=== PATIENT | male | born 1935 | race Caucasian/White ===

== ENCOUNTER 2018-04-30 11:04 | Inpatient (IN) | payer MEDICARE, OTHER ==
[2018-04-30] MEDS ORDERED: Albuterol-Ipratrop 3 mg / 0.5 (3 ml) UD IH STA (11:32)
--- NOTE | 2018-04-30 11:54 | ED PDOC ---
HPI: SOB/CHF/COPD Time Seen by Provider: 04/30/18 11:26 Chief Complaint (Nursing): Shortness Of Breath Chief Complaint (Provider): SOB, cough, congestion History Per: Patient History/Exam Limitations: no limitations Onset/Duration Of Symptoms: Days Current Symptoms Are (Timing): Still Present Associated Symptoms: Productive Cough. denies: Fever, Chills, Chest Pain Additional Complaint(s): Parviz Demarco is an 82 year old male, with a past medical history of throat CA with laryngectomy s/p tracheostomy and BPH, who presents to the emergency department for complaining of difficulty breathing, congestion and cough onset for days. Patient reports no improvement with suctioning and nebulizer treatments, patient has cannula in place. He denies any fever, chills or chest pain. No further medical complaints. PMD: None provided. Past Medical History Reviewed: Historical Data, Nursing Documentation, Vital Signs Vital Signs: Last Vital Signs Temp 98.4 F 05/02/18 08:00 Pulse 67 05/02/18 08:21 Resp 11 L 05/02/18 08:00 BP 149/85 05/02/18 08:21 Pulse Ox 99 05/02/18 08:00 - Medical History PMH: Benign Prostatic Hyperplasia Denies: Chronic Kidney Disease Other PMH: throat CA - Surgical History Other surgeries: laryngectomy s/p tracheostomy - Family History Family History: States: No Known Family Hx - Home Medications Home Medications: Ambulatory Orders Medication Instructions Recorded Albuterol/Ipratropium [Duoneb 3 3 ml IH Q6H PRN 03/08/15 mg/0.5 mg (3 ml) UD] Finasteride [Proscar] 5 mg PEG DAILY 03/08/15 Budesonide [Pulmicort Respules] 2 ml IH Q12 04/30/18 Sodium Chloride 0.9% [Sodium 3 ml IH Q6 PRN 04/30/18 Chloride 0.9% Inh Soln] - Allergies Allergies/Adverse Reactions: Allergies Allergy/AdvReac Type Severity Reaction Status Date / Time No Known Allergies Allergy Verified 04/30/18 11:10 Review of Systems ROS Statement: Except As Marked, All Systems Reviewed And Found Negative Constitutional: Negative for: Fever, Chills ENT: Positive for: Nose Congestion Cardiovascular: Negative for: Chest Pain Respiratory: Positive for: Cough, Shortness of Breath Physical Exam - Reviewed Nursing Documentation Reviewed: Yes Vital Signs Reviewed: Yes - Physical Exam Appears: Positive for: Non-toxic Head Exam: Positive for: ATRAUMATIC, NORMAL INSPECTION, NORMOCEPHALIC Skin: Positive for: Normal Color, Warm, Dry Eye Exam: Positive for: Normal appearance, EOMI, PERRL Neck: Positive for: Painless ROM, Supple Cardiovascular/Chest: Positive for: Regular Rate, Rhythm. Negative for: Murmur Respiratory: Positive for: Decreased Breath Sounds (at bases bilaterally), Rhonchi. Negative for: Wheezing, Respiratory Distress Gastrointestinal/Abdominal: Positive for: Normal Exam, Soft. Negative for: Tenderness Back: Positive for: Normal Inspection. Negative for: L CVA Tenderness, R CVA Tenderness, Vertebral Tenderness Extremity: Positive for: Normal ROM (full ROM to upper and lower extremities). Negative for: Deformity, Swelling Neurologic/Psych: Positive for: Alert, Oriented. Negative for: Motor/Sensory Deficits - Laboratory Results Result Diagrams: 05/02/18 04:39 05/02/18 04:39 - ECG O2 Sat by Pulse Oximetry: 95 (RA) Pulse Ox Interpretation: Normal Medical Decision Making Medical Decision Making: Time: 11:26 Initial Plan: --CMP --CBC w/ differential --Duoneb 3 ml INH --Peak flow pre/post Tx --Reevaluation ----- Scribe Attestation: Documented by Spenser Diallo, acting as a scribe for Abdulaziz Childress MD. Provider Scribe Attestation: All medical record entries made by the Scribe were at my direction and personally dictated by me. I have reviewed the chart and agree that the record accurately reflects my personal performance of the history, physical exam, medical decision making, and the department course for this patient. I have also personally directed, reviewed, and agree with the discharge instructions and disposition. Disposition - Clinical Impression Clinical Impression: Tracheostomy complication - Patient ED Disposition Is Patient to be Admitted: Transfer of Care - Disposition Disposition: Transfer of Care Disposition Time: 15:00 Condition: FAIR Patient Signed Over To: Ralph Marroquin
[2018-04-30] MEDS ORDERED: Albuterol-Ipratrop 3 mg / 0.5 (3 ml) UD ONE (11:55)
[2018-04-30 12:34] LABS: ALB/GLOB RATIO 0.9 (1.0-2.1); ALBUMIN 3.4 g/dL (3.5-5.0); ALT/SGPT 27 U/L (21-72); AST/SGOT 31 U/L (17-59); BLOOD UREA NITROGEN 34 mg/dl (9-20); CALCIUM 8.9 mg/dL (8.4-10.2); GFR AFRICAN-AMERICAN > 60; GFR NON-AFRICAN AMERICAN > 60
[2018-04-30 12:39] LABS: BASO % 0.4 % (0.0-2.0); EOS % 0.8 % (0.0-4.0); LYMPH # 0.5 K/uL (1.0-4.3); LYMPH % 10.5 % (20.0-40.0); MEAN CELL VOLUME 75.2 fl (80.0-94.0); MEAN CORPUSCULAR HEMOGLOBIN 24.1 pg (27.0-31.0); MEAN CORPUSCULAR HGB CONC 32.1 g/dL (33.0-37.0); MEAN PLATELET VOLUME 9.5 fl (7.2-11.7); MONO # 0.3 K/uL (0.0-0.8); MONO % 6.8 % (0.0-10.0); NEUT # 3.7 K/uL (1.8-7.0); NEUT % 81.5 % (50.0-75.0); NRBC % 0.2 % (0.0-0.0); RBC 4.58 Mil/uL (4.40-5.90); RED CELL DISTRIBUTION WIDTH 14.6 % (11.5-14.5); WHITE BLOOD COUNT 4.6 K/uL (4.8-10.8)
--- NOTE | 2018-04-30 13:23 | RAD ---
HISTORY: cough COMPARISON: No prior. TECHNIQUE: Chest PA and lateral FINDINGS: LUNGS: No active pulmonary disease. PLEURA: No significant pleural effusion identified. No pneumothorax apparent. CARDIOVASCULAR: Normal heart size. A tracheostomy tube is noted. OSSEOUS STRUCTURES: No significant abnormalities. VISUALIZED UPPER ABDOMEN: Normal. OTHER FINDINGS: None. IMPRESSION: No infiltrate. Tracheostomy tube noted
[2018-04-30] MEDS ORDERED: Sodium Chloride 0.9% 1,000 ML IV STA (14:01)
--- NOTE | 2018-04-30 15:24 | ED PDOC ---
- Laboratory Results Result Diagrams: 04/30/18 12:19 04/30/18 12:19 - ECG O2 Sat by Pulse Oximetry: 95 (RA) Pulse Ox Interpretation: Normal Medical Decision Making Medical Decision Making: Time: 1500 --Patient is endorsed to provider from Dr. Childress, awaiting to discuss case with Dr. Tran about patient's clogged trach tube. --Patient is currently medical stable. Scribe Attestation: Documented by Ximena Gordon, acting as a scribe for Ralph Marroquin MD. Provider Scribe Attestation: All medical record entries made by the Scribe were at my direction and personally dictated by me. I have reviewed the chart and agree that the record accurately reflects my personal performance of the history, physical exam, medical decision making, and the department course for this patient. I have also personally directed, reviewed, and agree with the discharge instructions and disposition. 1704: Dr. Tran knows pt. well. Saw pt. in the ER. Will admit. He will discuss with Dr. Cardenas. Dr. Harvey spoken to by Dr. Childress who states no acute tx at this time and will consult. Disposition Counseled Patient/Family Regarding: Studies Performed, Diagnosis - Clinical Impression Clinical Impression: Tracheostomy complication - POA Present On Arrival: None - Disposition Disposition: Hospitalized as Observation Patient Disposition Time: 17:06 Condition: FAIR
[2018-04-30] MEDS ORDERED: Albuterol-Ipratrop 3 mg / 0.5 (3 ml) UD INH STA ×2 (19:11→19:34)
[2018-04-30 19:33] LABS: ABG ALLEN TEST YES; ARTERIAL BLOOD GAS HCO3 30.8 mmol/L (21-28); ARTERIAL BLOOD GAS PCO2 44 mm/Hg (35-45); ARTERIAL BLOOD GAS PH 7.47 (7.35-7.45); ARTERIAL BLOOD GAS PO2 133 mm/Hg (80-100); ARTERIAL BLOOD GAS TCO2 33.4 mmol/L (22-28)
[2018-04-30] MEDS ORDERED: methylPREDNISolone 125 MG in Sodium Chloride 0.9% 50 ML IVPB STA (19:44)
[2018-04-30] MEDS ORDERED: Labetalol 5 mg/ml Inj 20ML IVP ONE (19:45)
[2018-04-30] MEDS ORDERED: Albuterol 0.083% Inhal Sol (2.5 mg/3 mL) UD INH PRN (20:00)
--- NOTE | 2018-04-30 20:31 | CP.PCM.CON ---
History of Present Illness - History of Present Illness History of Present Illness: CC/Reason for transfer to ICU: worsening SOB, elevated BP HPI: This is an 82 y/o male with MHx sig for throat ca with laryngectomy s/p trach, and BPH. He was admitted from ER earlier today to tele with c/o difficulty breathing, cough, and congestion x several days. This evening an RACK CARRIER was called because his SBP was > 200 and he was c/o worsening resp difficulty. He was t/f to ICU for closer observation. He has no other complaints other than his resp difficulty. MHx: BPH SHx: Throat surgery/trach Allergies: NKDA Fam/Social Hx: no relevant findings Past Patient History - Past Medical History & Family History Past Medical History?: Yes - Past Social History Smoking Status: Never Smoked - CARDIAC Hx Cardiac Disorders: No - PULMONARY Hx Respiratory Disorders: Yes Other/Comment: tracheostomy secondary to throat ca - NEUROLOGICAL Hx Neurological Disorder: No - HEENT Hx HEENT Problems: Yes (throat cancer) - RENAL Hx Chronic Kidney Disease: No - ENDOCRINE/METABOLIC Hx Endocrine Disorders: No - HEMATOLOGICAL/ONCOLOGICAL Hx Blood Disorders: No - INTEGUMENTARY Hx Dermatological Problems: No - MUSCULOSKELETAL/RHEUMATOLOGICAL Hx Musculoskeletal Disorders: No Hx Falls: No - GASTROINTESTINAL Hx Gastrointestinal Disorders: Yes Other/Comment: gastrostomy tube - GENITOURINARY/GYNECOLOGICAL Hx Genitourinary Disorders: Yes (BPH) - PSYCHIATRIC Hx Psychophysiologic Disorder: No Hx Substance Use: No - SURGICAL HISTORY Hx Surgeries: Yes Other/Comment: open gastrostomy tube placement and Tracheostomy - ANESTHESIA Hx Anesthesia: Yes Meds Allergies/Adverse Reactions: Allergies Allergy/AdvReac Type Severity Reaction Status Date / Time No Known Allergies Allergy Verified 04/30/18 11:10 - Medications Medications: Current Medications Albuterol Sulfate (Albuterol 0.083% Inhal [place]acia (2.5 Mg/3 Ml) Ud) 2.5 mg INH RQ4 PRN PRN Reason: Shortness of Breath Albuterol/Ipratropium (Duoneb 3 Mg/0.5 Mg (3 Ml) Ud) 3 ml INH RQ6 RONA Furosemide (Lasix) 40 mg IV ONCE ONE Stop: 05/01/18 19:12 Last Admin: 04/30/18 19:18 Dose: 40 mg Physical Exam - Constitutional Appears: No Acute Distress, Chronically Ill - Head Exam Head Exam: ATRAUMATIC, NORMOCEPHALIC - Eye Exam Eye Exam: EOMI, PERRL - ENT Exam ENT Exam: Mucous Membranes Moist - Respiratory Exam Respiratory Exam: Rhonchi, Wheezes, Respiratory Distress - Cardiovascular Exam Cardiovascular Exam: REGULAR RHYTHM, +S1, +S2 - GI/Abdominal Exam GI & Abdominal Exam: Normal Bowel Sounds, Soft - Extremities Exam Extremities exam: Positive for: full ROM, normal inspection - Neurological Exam Neurological exam: Alert, CN II-XII Intact, Oriented x3 - Psychiatric Exam Psychiatric exam: Normal Affect, Normal Mood - Skin Skin Exam: Dry, Warm Results - Vital Signs Recent Vital Signs: Last Vital Signs Temp 98.4 F 04/30/18 20:08 Pulse 65 04/30/18 20:08 Resp 18 04/30/18 20:08 BP 154/75 H 04/30/18 20:08 Pulse Ox 99 04/30/18 20:08 - Labs Result Diagrams: 04/30/18 12:19 04/30/18 12:19 Labs: Laboratory Results - last 24 hr 04/30/18 04/30/18 04/30/18 12:19 12:19 19:25 WBC 4.6 L RBC 4.58 Hgb 11.0 L Hct 34.4 L MCV 75.2 L MCH 24.1 L MCHC 32.1 L RDW 14.6 H Plt Count 150 MPV 9.5 Neut % (Auto) 81.5 H Lymph % (Auto) 10.5 L [place] % (Auto) 6.8 Eos % (Auto) 0.8 Baso % (Auto) 0.4 Neut # (Auto) 3.7 Lymph # (Auto) 0.5 L [place] # (Auto) 0.3 Eos # (Auto) 0.0 Baso # (Auto) 0.0 pCO2 44 pO2 133 H HCO3 30.8 H ABG pH 7.47 H ABG Total CO2 33.4 H ABG O2 Saturation 100.0 H ABG Base Excess 7.4 H Danyel Test Yes ABG Potassium 3.6 A-a O2 Difference 12.0 Glucose 161 H Lactate 1.1 Vent Mode Tc FiO2 28.0 Sodium 142 141.0 Potassium 4.3 Chloride 106 106.0 Carbon Dioxide 26 Anion Gap 14 BUN 34 H Creatinine 0.9 Est GFR ( Amer) > 60 Est GFR (Non-Af Amer) > 60 Random Glucose 178 H Calcium 8.9 Total Bilirubin 0.3 AST 31 ALT 27 Alkaline Phosphatase 79 Total Protein 7.3 Albumin 3.4 L Globulin 3.9 Albumin/Globulin Ratio 0.9 L Arterial Blood Potassium 3.6 Assessment & Plan (1) Respiratory distress Assessment and Plan: 82 y/o male s/p laryngectomy with trach c/o worsening resp difficulty and with elevated BP. Abg and O2 sat have been stable. -Transfer to ICU for closer observation -Continue duonebs -Given 1 dose IV lasix -Given 1 dose IV labetolol -ENT consulted Status: Acute (2) Hypertensive urgency Status: Acute
[2018-04-30] MEDS ORDERED: SODIUM CHLORIDE 0.9% IH PRN (20:43)
[2018-04-30] MEDS ORDERED: [UNRECOGNIZED DRUG - OTHER] IH PRN (20:43)
--- NOTE | 2018-04-30 21:07 | PCM.RRT ---
[employer] Nurse Assessment - Situation [employer] Reason for Call: Hypertension, Respiratory Distress - Ventilator Settings FIO2 (% Oxygen): 28 - Trino Coma Scale Coma Scale Eye Opening: Spontaneous Coma Scale Motor: Obeys Commands Movement Coma Scale Verbal: Oriented Coma Scale Total: 15 I.Reason for ADVISORY [employer] - A) Acute Change in Patient: Subjective: [employer] was called by nurse for a 82 y/o male with PMHx significant for throat ca with laryngectomy s/p trach, and BPH. He was admitted from ER earlier today to tele with c/o difficulty breathing, cough, and congestion x several days. [employer] was called because his SBP was > 200 and he was c/o worsening resp difficulty.At the time of arrival patient was awake, alert, and oriented x 3 , c /o SOB. Denies chest pain, dizziness, blurry vision, abd pain or other complains. - Neurological Status (Select all that apply): Alert, Responsive, Oriented. absent: Confused - Respiratory Oxygen Delivery Method: Trach Collar @% - Constitutional Appears: Non-toxic, Other (respiratory distress) - Head Head Exam: ATRAUMATIC, NORMOCEPHALIC - Respiratory Exam Respiratory Exam: Wheezes (diffuse and bilateral), Respiratory Distress, NORMAL BREATHING PATTERN. absent: Chest Wall Tenderness, Rales, Rhonchi, Stridor - Cardiovascular Exam Cardiovascular Exam: REGULAR RHYTHM, +S1, +S2 - GI/Abdominal Exam GI & Abdominal Exam: Distended, Soft, Diminished Bowel Sounds. absent: Tenderness - Neurological Exam Neurological Exam: Alert, Awake, Oriented x3 - Extremities Exam Extremities Exam: Normal Inspection. absent: Calf Tenderness, Pedal Edema Plan - Assessment of Findings&Treatment Plan Plan:- -Tracheostomy succ -O2 via high humidity aerosol -Duoneb stat once -ABG stat -lasix 40 mg IV once Re-evaluation still c/o SOB, and still wheezing -give second Duoneb neb stat -ABG stat WNL -BP still elevated 190/108 mmhg -give labetalol 20 mg IV once re-evaluation improving, but still c/o SOB BP improving give third Duoneb neb pt asymptomatic for chest pain, dizziness, blurry vision Dr Tran was called by Dr. Alford, Hospitalist patient will be transferred to ICU unit for respiratory monitoring Call pulmunology on consult, Dr. Marcano Call ENT on consult, Dr. Cardenas start duoneb neg Q6 feliberto start Albuterol inh Q4 PRN case discussed with [employer] leader, Dr. Alford
[2018-05-01] MEDS: Albuterol-Ipratrop 3 mg / 0.5 (3 ml) UD INH SCH ×2 (02:52→08:08)
[2018-05-01 05:53] LABS: BLOOD UREA NITROGEN 30 mg/dl (9-20); CALCIUM 9.5 mg/dL (8.4-10.2); GFR AFRICAN-AMERICAN > 60; GFR NON-AFRICAN AMERICAN > 60
[2018-05-01 06:02] LABS: HEMOGLOBIN 12.2 g/dL (12.0-18.0); MEAN CELL VOLUME 75.7 fl (80.0-94.0); MEAN CORPUSCULAR HGB CONC 31.7 g/dL (33.0-37.0); RBC 5.07 Mil/uL (4.40-5.90); RED CELL DISTRIBUTION WIDTH 14.7 % (11.5-14.5); WHITE BLOOD COUNT 5.1 K/uL (4.8-10.8)
[2018-05-01 06:03] VITALS: BMI 20.8
--- NOTE | 2018-05-01 06:40 | CP.PCM.PCO ---
Physician Communication Note - Physician Communication Note Physician Communication Note: Improved, comfortable, sitting in bed, HOB elevated, reading a book.
[2018-05-01] MEDS: Budesonide 0.25 mg/2 ml Inhal Susp UD IH SCH ×3 (08:08→19:03)
[2018-05-01] MEDS ORDERED: Labetalol 5 mg/ml Inj 20ML IVP PRN (08:24)
[2018-05-01] MEDS ORDERED: Labetalol 5 mg/ml Inj 20ML IVP STA (10:42)
--- NOTE | 2018-05-01 12:45 | CP.PCM.CON ---
History of Present Illness - History of Present Illness History of Present Illness: Reason for consultation: sob, and clogged up tracheostomy tube. Requested by Dr. Tran. I have reviewed progress notes, imaging studies, and examined the pt. 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 He is a 82 yo male s/p total laryngectomy and end tracheostomy (15 years ago). He has done quite well since surgery and has been followed by his surgeon at a [facility]. 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 He presented yesterday with hx of progressive onset of sob and chest discomfort. In the ER, RRP was called, and was suctioned out vigorously from which his sx and O2 sat improved. Pt today does not show any signs of airway obstruction. Breathing comfortably. Denies sob. cxr: satisfactory. a/p: 1. Upper air obstruction due to inspissated secretions 2. Vigorous pulmonary toilet regimen. Past Patient History - Past Medical History & Family History Past Medical History?: Yes - Past Social History Smoking Status: Never Smoked - CARDIAC Hx Cardiac Disorders: No - PULMONARY Hx Respiratory Disorders: Yes Other/Comment: tracheostomy secondary to throat ca - NEUROLOGICAL Hx Neurological Disorder: No - HEENT Hx HEENT Problems: Yes (throat cancer) - RENAL Hx Chronic Kidney Disease: No - ENDOCRINE/METABOLIC Hx Endocrine Disorders: No - HEMATOLOGICAL/ONCOLOGICAL Hx Blood Disorders: No - INTEGUMENTARY Hx Dermatological Problems: No - MUSCULOSKELETAL/RHEUMATOLOGICAL Hx Musculoskeletal Disorders: No Hx Falls: No - GASTROINTESTINAL Hx Gastrointestinal Disorders: Yes Other/Comment: gastrostomy tube - GENITOURINARY/GYNECOLOGICAL Hx Genitourinary Disorders: Yes (BPH) - PSYCHIATRIC Hx Psychophysiologic Disorder: No Hx Substance Use: No - SURGICAL HISTORY Hx Surgeries: Yes Other/Comment: open gastrostomy tube placement and Tracheostomy - ANESTHESIA Hx Anesthesia: Yes Meds Allergies/Adverse Reactions: Allergies Allergy/AdvReac Type Severity Reaction Status Date / Time No Known Allergies Allergy Verified 04/30/18 11:10 - Medications Medications: Current Medications Albuterol Sulfate (Albuterol 0.083% Inhal [place]acia (2.5 Mg/3 Ml) Ud) 2.5 mg INH RQ4 PRN PRN Reason: Shortness of Breath Budesonide (Pulmicort Respules) 0.25 mg IH RBID [facility] Last Admin: 05/01/18 08:08 Dose: 0.25 mg Finasteride (Proscar) 5 mg PEG DAILY [facility] Last Admin: 05/01/18 08:58 Dose: 5 mg Furosemide (Lasix) 40 mg IV ONCE ONE Stop: 05/01/18 19:12 Last Admin: 04/30/18 19:18 Dose: 40 mg Hydrochlorothiazide (Hydrodiuril) 25 mg PO DAILY [facility] Last Admin: 05/01/18 08:58 Dose: 25 mg Ipratropium [place] (Atrovent) 0.5 mg IH RQ4 [facility] Results - Vital Signs Recent Vital Signs: Last Vital Signs Temp 98.7 F 05/01/18 12:00 Pulse 70 05/01/18 12:02 Resp 21 05/01/18 12:00 BP 195/112 H 05/01/18 12:02 Pulse Ox 100 05/01/18 12:00 - Labs Result Diagrams: 05/01/18 05:00 05/01/18 05:00 Labs: Laboratory Results - last 24 hr 04/30/18 04/30/18 04/30/18 12:19 12:19 19:25 WBC 4.6 L RBC 4.58 Hgb 11.0 L Hct 34.4 L MCV 75.2 L MCH 24.1 L MCHC 32.1 L RDW 14.6 H Plt Count 150 MPV 9.5 Neut % (Auto) 81.5 H Lymph % (Auto) 10.5 L [place] % (Auto) 6.8 Eos % (Auto) 0.8 Baso % (Auto) 0.4 Neut # (Auto) 3.7 Lymph # (Auto) 0.5 L [place] # (Auto) 0.3 Eos # (Auto) 0.0 Baso # (Auto) 0.0 pCO2 44 pO2 133 H HCO3 30.8 H ABG pH 7.47 H ABG Total CO2 33.4 H ABG O2 Saturation 100.0 H ABG Base Excess 7.4 H Danyel Test Yes ABG Potassium 3.6 A-a O2 Difference 12.0 Glucose 161 H Lactate 1.1 Vent Mode Tc FiO2 28.0 Sodium 142 141.0 Potassium 4.3 Chloride 106 106.0 Carbon Dioxide 26 Anion Gap 14 BUN 34 H Creatinine 0.9 Est GFR ( Amer) > 60 Est GFR (Non-Af Amer) > 60 Random Glucose 178 H Calcium 8.9 Total Bilirubin 0.3 AST 31 ALT 27 Alkaline Phosphatase 79 Total Protein 7.3 Albumin 3.4 L Globulin 3.9 Albumin/Globulin Ratio 0.9 L Arterial Blood Potassium 3.6 05/01/18 05/01/18 05:00 05:00 WBC 5.1 RBC 5.07 Hgb 12.2 Hct 38.4 MCV 75.7 L MCH 24.0 L MCHC 31.7 L RDW 14.7 H Plt Count 177 MPV Neut % (Auto) Lymph % (Auto) [place] % (Auto) Eos % (Auto) Baso % (Auto) Neut # (Auto) Lymph # (Auto) [place] # (Auto) Eos # (Auto) Baso # (Auto) pCO2 pO2 HCO3 ABG pH ABG Total CO2 ABG O2 Saturation ABG Base Excess Danyel Test ABG Potassium A-a O2 Difference Glucose Lactate Vent Mode FiO2 Sodium 143 Potassium 4.3 Chloride 100 Carbon Dioxide 31 H Anion Gap 16 BUN 30 H Creatinine 0.8 Est GFR ( Amer) > 60 Est GFR (Non-Af Amer) > 60 Random Glucose 159 H Calcium 9.5 Total Bilirubin AST ALT Alkaline Phosphatase Total Protein Albumin Globulin Albumin/Globulin Ratio Arterial Blood Potassium
--- NOTE | 2018-05-01 13:21 | CP.PCM.CON ---
History of Present Illness - History of Present Illness History of Present Illness: 82 YR OLD MALE WHO IS KNOWN TO ME IN THE PAST[2014].HE IS REFERRED BY DR KOCH BECAUSE OF RESPIRATORY DIFFICULTY DUE TO MUCUS PLUGGING OF HIS PERMANENT TRACHEOSTOMY SITE.HE HAS BEEN WELL SINCE TRACH REVISION IN 2013. HE APPEARS COMFORTABLE AT PRESENT WITH GOOD O2 SATURATION. Past Patient History - Past Medical History & Family History Past Medical History?: Yes - Past Social History Smoking Status: Never Smoked - CARDIAC Hx Cardiac Disorders: No - PULMONARY Hx Respiratory Disorders: Yes Other/Comment: tracheostomy secondary to throat ca - NEUROLOGICAL Hx Neurological Disorder: No - HEENT Hx HEENT Problems: Yes (throat cancer) - RENAL Hx Chronic Kidney Disease: No - ENDOCRINE/METABOLIC Hx Endocrine Disorders: No - HEMATOLOGICAL/ONCOLOGICAL Hx Blood Disorders: No - INTEGUMENTARY Hx Dermatological Problems: No - MUSCULOSKELETAL/RHEUMATOLOGICAL Hx Musculoskeletal Disorders: No Hx Falls: No - GASTROINTESTINAL Hx Gastrointestinal Disorders: Yes Other/Comment: gastrostomy tube - GENITOURINARY/GYNECOLOGICAL Hx Genitourinary Disorders: Yes (BPH) - PSYCHIATRIC Hx Psychophysiologic Disorder: No Hx Substance Use: No - SURGICAL HISTORY Hx Surgeries: Yes Other/Comment: open gastrostomy tube placement and Tracheostomy - ANESTHESIA Hx Anesthesia: Yes Meds Allergies/Adverse Reactions: Allergies Allergy/AdvReac Type Severity Reaction Status Date / Time No Known Allergies Allergy Verified 04/30/18 11:10 - Medications Medications: Current Medications Albuterol Sulfate (Albuterol 0.083% Inhal [place]acia (2.5 Mg/3 Ml) Ud) 2.5 mg INH RQ4 PRN PRN Reason: Shortness of Breath Budesonide (Pulmicort Respules) 0.25 mg IH RBID [facility] Last Admin: 05/01/18 08:08 Dose: 0.25 mg Finasteride (Proscar) 5 mg PEG DAILY [facility] Last Admin: 05/01/18 08:58 Dose: 5 mg Furosemide (Lasix) 40 mg IV ONCE ONE Stop: 05/01/18 19:12 Last Admin: 04/30/18 19:18 Dose: 40 mg Hydrochlorothiazide (Hydrodiuril) 25 mg PO DAILY [facility] Last Admin: 05/01/18 08:58 Dose: 25 mg Ipratropium [place] (Atrovent) 0.5 mg IH RQ4 [facility] Physical Exam - Constitutional Appears: Well, No Acute Distress - Head Exam Head Exam: ATRAUMATIC, NORMAL INSPECTION, NORMOCEPHALIC Additional comments: TRACHSITE CLEAN - Eye Exam Eye Exam: EOMI, Normal appearance, PERRL Pupil Exam: NORMAL ACCOMODATION, PERRL - ENT Exam ENT Exam: Mucous Membranes Moist, Normal Exam Additional comments: TRACHEOSTOMY SITE CLEAN - Neck Exam Neck exam: Positive for: Normal Inspection - Respiratory Exam Respiratory Exam: Clear to Auscultation Bilateral, NORMAL BREATHING PATTERN - Cardiovascular Exam Cardiovascular Exam: REGULAR RHYTHM - GI/Abdominal Exam GI & Abdominal Exam: Normal Bowel Sounds, Soft. absent: Tenderness - Rectal Exam Rectal Exam: NORMAL INSPECTION - Exam Exam: Circumcision, NORMAL INSPECTION External exam: NORMAL EXTERNAL EXAM Speculum exam: NORMAL SPECULUM EXAM Bimanual exam: NORMAL BIMANUAL EXAM - Extremities Exam Extremities exam: Positive for: normal inspection - Back Exam Back exam: NORMAL INSPECTION - Neurological Exam Neurological exam: Alert, CN II-XII Intact, Normal Gait, Oriented x3, Reflexes Normal - Psychiatric Exam Psychiatric exam: Normal Affect, Normal Mood - Skin Skin Exam: Dry, Intact, Normal Color, Warm Results - Vital Signs Recent Vital Signs: Last Vital Signs Temp 98.7 F 05/01/18 12:00 Pulse 70 05/01/18 12:02 Resp 21 05/01/18 12:00 BP 195/112 H 05/01/18 12:02 Pulse Ox 100 05/01/18 12:00 - Labs Result Diagrams: 05/01/18 05:00 05/01/18 05:00 Labs: Laboratory Results - last 24 hr 04/30/18 05/01/18 05/01/18 19:25 05:00 05:00 WBC 5.1 RBC 5.07 Hgb 12.2 Hct 38.4 MCV 75.7 L MCH 24.0 L MCHC 31.7 L RDW 14.7 H Plt Count 177 pCO2 44 pO2 133 H HCO3 30.8 H ABG pH 7.47 H ABG Total CO2 33.4 H ABG O2 Saturation 100.0 H ABG Base Excess 7.4 H Danyel Test Yes ABG Potassium 3.6 A-a O2 Difference 12.0 Sodium 141.0 143 Chloride 106.0 100 Glucose 161 H Lactate 1.1 Vent Mode Tc FiO2 28.0 Potassium 4.3 Carbon Dioxide 31 H Anion Gap 16 BUN 30 H Creatinine 0.8 Est GFR ( Amer) > 60 Est GFR (Non-Af Amer) > 60 Random Glucose 159 H Calcium 9.5 Arterial Blood Potassium 3.6 Assessment & Plan - Assessment and Plan (Free Text) Assessment: RESPIRATORY DISTRESS RESOLVED MUCUS PLUGGING OF AIRWAYS PERMANENT TREACHEOSTOMY Plan: CONTINUE CURRENT THERAPY - Date & Time Date: 05/01/18 Time: 13:23
[2018-05-01] MEDS: Ipratropium 0.02% Inhal Soln (0.5 mg/2.5 ml) UD IH SCH ×4 (14:26→23:24)
--- NOTE | 2018-05-01 18:30 | PN ---
DATE: 05/01/2018 SUBJECTIVE: The patient is seen today, 05/01/2018, and he is not in any cardiopulmonary distress today. PHYSICAL EXAMINATION: VITAL SIGNS: Blood pressure is 190/100, temperature 98.7, respiratory rate 20, and pulse 70. HEENT: Pupils equal and reactive to light. Normal-appearing mucosa of the conjunctivae, oropharynx, and nasal membrane mucosa. NECK: Supple. No JVD. No carotid bruits. No lymph node. No thyromegaly. CHEST AND LUNGS: Bilateral symmetrical expansion. Good air exchange. Few scattered rhonchi. CARDIOVASCULAR SYSTEM: PMI not localized. S1 and S2. No additional sounds. ABDOMEN: Gastric tube is in place. EXTREMITIES: No cyanosis. No clubbing. No edema. SENIOR CORPORATE RECRUITER: Alert, awake, oriented x1. The patient moves all extremities equally and . LABORATORY DATA: The patient had an [employer]ENCH INSTRUCTOR done yesterday for uncontrolled hypertension, which still is in spite of different antihypertensive medications that was given to the patient. We will give also the patient Xanax 0.25 mg. ASSESSMENT: 1. Clogged tracheal tube, but responded to suctioning. 2. Uncontrolled hypertension. The patient did not have history of hypertension before and he was not on any antihypertensive medication. PLAN: We will continue current medicine and give the patient Xanax. Discussed the patient's condition with plastic device sales consultant at the bedside and with the family. Nevin Tran MD
[2018-05-01] MEDS ORDERED: Lactated Ringer's 500 ML IV SCH ×2 (23:30→23:45)
--- NOTE | 2018-05-01 23:59 | HP ---
LATE ENTRY FOR HISTORY AND PHYSICAL HISTORY OF PRESENT ILLNESS: The patient was seen on 04/30/2018 in the emergency room. 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 Currently, the patient is on both gastric tube feeding as well as breathing through a tracheal tube. The patient was brought to the emergency room for shortness of breath that has been progressive over the last two days prior to admission. REVIEW OF SYSTEM: Other review of system is no chest pain, no abdominal pain, and the patient is also . ALLERGY: NO KNOWN ALLERGY. MEDICATIONS: Medications were reviewed as per DEC. PAST MEDICAL HISTORY: As above plus COPD. SOCIAL HISTORY: No history of smoking, EtOH or substance abuse. FAMILY HISTORY: Noncontributory. PHYSICAL EXAMINATION: GENERAL: The patient was in bed, not in cardiopulmonary distress after he was suctioned frequently in the emergency room. VITAL SIGNS: Blood pressure was 139/87, temperature 98, respiratory rate 18, and pulse 102. HEENT: Pupils equal and reactive to light. Normal-appearing mucosa of the conjunctivae, oropharynx, and nasal membrane mucosa. NECK: Supple. No JVD. No carotid bruits. No lymph nodes. No thyromegaly. The patient has a tracheal tube in place. CHEST AND LUNGS: Bilateral symmetrical expansion. Good air exchange. No rales. No rhonchi. CARDIOVASCULAR SYSTEM: PMI is not localized. S1, S2. No additional sounds. ABDOMEN: Gastric tube is in place. EXTREMITIES: No cyanosis, no clubbing, no edema. ELECTROTYPER: Alert, awake, but he has deafness and he moves all extremities equally. ASSESSMENT: 1. Clogged tracheal tube that responded to suctioning. 2. History of chronic obstructive pulmonary disease. 3. History of cancer of larynx, status post laryngectomy and pharyngectomy. 4. Gastric tube feeding. PLAN: Continue suctioning and tolerating the tracheal tube. Continue bronchodilators. ENT consult and thoracic surgery consult and to follow up their recommendations. Nevin Tran MD
--- NOTE | 2018-05-02 04:02 | CON ---
DATE: 05/01/2018 REFERRING PHYSICIAN: ICU doctor. REASON FOR CONSULTATION: Possible upper airway obstruction. HISTORY OF PRESENT ILLNESS: This is an 82-year-old male, status post total laryngectomy 15 years ago. The patient had episode of shortness of breath, and the nurses have trouble suctioning the trach tube in the laryngectomy stoma. The patient does not have any shortness of breath now. The shortness of breath was described as mild to moderate in intensity, lasting few minutes and it was constant. PAST MEDICAL HISTORY: As noted in the chart by me. MEDICATIONS: As noted in the chart by me. PHYSICAL EXAMINATION: HEENT: Head is atraumatic and normocephalic. FACE: Good facial movements bilaterally. CONSTITUTIONAL: Well-fed and well-nourished. COMMUNICATION: Communicates well and appropriately. EXTERNAL NOSE AND EARS: No masses. No lesions. No erythema. No edema. INTERNAL NOSE: Deviated septum. No masses. No lesions. No erythema. No edema. ORAL CAVITY AND OROPHARYNX: No masses. No lesions. No erythema. No edema. LIPS AND GUMS: No masses. No lesions. No erythema. No edema. NECK: Laryngectomy stoma noted. Postradiation and postsurgical changes noted. LYMPH NODES: No lymphadenopathy of the neck. THYROID: Not noted. ASSESSMENT AND PLAN: It should be noted that the trach tube was noted to have lots of crusting and debris in it. Therefore, it was changed in order to reduce the possibility of the patient's upper airway obstruction. The patient is for possible bronchoscopy tomorrow. Tirso Cardenas MD MTDAnnamarie
[2018-05-02] MEDS: Ipratropium 0.02% Inhal Soln (0.5 mg/2.5 ml) UD IH SCH ×5 (04:44→19:15)
[2018-05-02 05:30] LABS: HEMOGLOBIN 12.6 g/dL (12.0-18.0); MEAN CELL VOLUME 75.8 fl (80.0-94.0); MEAN CORPUSCULAR HEMOGLOBIN 24.2 pg (27.0-31.0); RBC 5.19 Mil/uL (4.40-5.90); RED CELL DISTRIBUTION WIDTH 14.5 % (11.5-14.5); WHITE BLOOD COUNT 6.8 K/uL (4.8-10.8)
[2018-05-02 05:46] LABS: ALBUMIN 3.9 g/dL (3.5-5.0); ALT/SGPT 28 U/L (21-72); AST/SGOT 43 U/L (17-59); BLOOD UREA NITROGEN 45 mg/dl (9-20); CALCIUM 9.8 mg/dL (8.4-10.2); GFR AFRICAN-AMERICAN > 60; GFR NON-AFRICAN AMERICAN 58
[2018-05-02] MEDS: Budesonide 0.25 mg/2 ml Inhal Susp UD IH SCH ×2 (08:07→19:15)
--- NOTE | 2018-05-02 08:57 | CP.CCUPN ---
CCU Subjective - Physician Review Events Since Last Encounter (Free Text): 05/02/18 08:53 Alert and awake, comfortable, in no distress, BP stable and oxy satis good CCU Objective - Vital Signs / Intake & Output Vital Signs (Last 4 hours): Vital Signs Temp Pulse Resp BP Pulse Ox 05/02/18 08:21 67 149/85 05/02/18 08:00 98.4 F 64 11 L 149/85 99 05/02/18 06:00 73 14 124/79 99 Intake and Output (Last 8hrs): Intake & Output 05/01/18 05/02/18 05/02/18 22:59 06:59 14:59 Intake Total 474 700 Balance 474 700 Intake: IV 700 Free Water Flush 474 - Physical Exam Narrative Physical Exam (Free Text): 05/02/18 08:54 P/E neck: No JVD Lungs: N ronchi, crackles Abdomen: no tenderness, soft ext; No edema heart: No gallop. - Medications Active Medications: Active Medications Generic Name Dose Route Start Last Admin Trade Name Freq PRN Reason Stop Dose Admin Albuterol Sulfate 2.5 mg 04/30/18 20:00 Albuterol 0.083% Inhal Gracia (2.5 Mg/3 Ml) Ud INH RQ4 PRN Shortness of Breath Amlodipine Besylate 10 mg 05/02/18 09:00 05/02/18 08:21 Norvasc PO 10 mg DAILY RONA Administration Budesonide 0.25 mg 04/30/18 21:00 05/02/18 08:07 Pulmicort Respules IH 0.25 mg RBID RONA Administration Finasteride 5 mg 05/01/18 09:00 05/02/18 08:23 Proscar PEG 5 mg DAILY RONA Administration Hydrochlorothiazide 25 mg 05/01/18 09:00 05/02/18 08:21 Hydrodiuril PO 25 mg DAILY RONA Administration Lactated Ringer's 500 mls @ 100 mls/hr 05/01/18 23:45 05/01/18 23:49 Lactated Ringer's IV 100 mls/hr .Q5H RONA Administration Ipratropium [place] 0.5 mg 05/01/18 12:00 05/02/18 08:07 Atrovent IH 0.5 mg RQ4 RONA Administration - Patient Studies Lab Studies: Lab Studies 05/02/18 05/02/18 Range/Units 04:39 04:39 WBC 6.8 (4.8-10.8) K/uL RBC 5.19 (4.40-5.90) Mil/uL Hgb 12.6 (12.0-18.0) g/dL Hct 39.3 (35.0-51.0) % MCV 75.8 L (80.0-94.0) fl MCH 24.2 L (27.0-31.0) pg MCHC 32.0 L (33.0-37.0) g/dL RDW 14.5 (11.5-14.5) % Plt Count 168 (130-400) K/uL Sodium 138 (132-148) mmol/l Potassium 3.8 (3.6-5.0) MMOL/L Chloride 98 (98-107) mmol/L Carbon Dioxide 31 H (22-30) mmol/L Anion Gap 13 (10-20) BUN 45 H (9-20) mg/dl Creatinine 1.2 (0.8-1.5) mg/dl Est GFR ( Amer) > 60 Est GFR (Non-Af Amer) 58 Random Glucose 83 (75-110) mg/dL Calcium 9.8 (8.4-10.2) mg/dL Total Bilirubin 0.4 (0.2-1.3) mg/dl AST 43 (17-59) U/L ALT 28 (21-72) U/L Alkaline Phosphatase 95 (38-126) U/L Total Protein 7.8 (6.3-8.2) G/DL Albumin 3.9 (3.5-5.0) g/dL Globulin 3.9 (2.2-3.9) gm/dL Albumin/Globulin Ratio 1.0 (1.0-2.1) Laboratory Results - last 24 hr 05/02/18 05/02/18 04:39 04:39 WBC 6.8 RBC 5.19 Hgb 12.6 Hct 39.3 MCV 75.8 L MCH 24.2 L MCHC 32.0 L RDW 14.5 Plt Count 168 Sodium 138 Potassium 3.8 Chloride 98 Carbon Dioxide 31 H Anion Gap 13 BUN 45 H Creatinine 1.2 Est GFR ( Amer) > 60 Est GFR (Non-Af Amer) 58 Random Glucose 83 Calcium 9.8 Total Bilirubin 0.4 AST 43 ALT 28 Alkaline Phosphatase 95 Total Protein 7.8 Albumin 3.9 Globulin 3.9 Albumin/Globulin Ratio 1.0 Critical Care Progress Note - Nutrition Nutrition: Nutrition Category Date Time Status NPO Diet [DIET] Diets 05/01/18 Breakfast Active Assessment/Plan - Assessment and Plan (Free Text) Assessment: Assessment & Plan (1) Respiratory distress Assessment and Plan: 82 y/o male s/p laryngectomy with trach was transferred to ICU with worsening resp difficulty and with elevated BP. It was due to mucus plug and now have improved. Continue current meds Does not need ICu monitoring anymore Transfer back to [facility] Status: Acute (2) Hypertensive urgency Status: Acute BP is stable and controlled now Transfer to [facility].
--- NOTE | 2018-05-02 11:27 | CP.PCM.PN ---
Subjective - Date & Time of Evaluation Date of Evaluation: 05/02/18 Time of Evaluation: 11:27 - Subjective Subjective: NO APPARENT DISTRESS TRACH SITE CLEAN SUCTION PRODUCES BLOOD TINGED SPUTUM--DUE TO TRAUMA OF SUCTION CATH Objective - Vital Signs/Intake and Output Vital Signs (last 24 hours): Temp Pulse Resp BP Pulse Ox 98.4 F 74 19 116/80 100 05/02/18 08:00 05/02/18 10:00 05/02/18 10:00 05/02/18 10:00 05/02/18 10:00 Intake and Output: 05/02/18 05/02/18 06:59 18:59 Intake Total 700 540 Output Total 300 Balance 700 240 - Medications Medications: Current Medications Albuterol Sulfate (Albuterol 0.083% Inhal [place]acia (2.5 Mg/3 Ml) Ud) 2.5 mg INH RQ4 PRN PRN Reason: Shortness of Breath Amlodipine Besylate (Norvasc) 10 mg PO DAILY [facility] Last Admin: 05/02/18 08:21 Dose: 10 mg Budesonide (Pulmicort Respules) 0.25 mg IH RBID [facility] Last Admin: 05/02/18 08:07 Dose: 0.25 mg Finasteride (Proscar) 5 mg PEG DAILY [facility] Last Admin: 05/02/18 08:23 Dose: 5 mg Hydrochlorothiazide (Hydrodiuril) 25 mg PO DAILY [facility] Last Admin: 05/02/18 08:21 Dose: 25 mg Lactated Ringer's (Lactated Ringer's) 500 mls @ 100 mls/hr IV .Q5H [facility] Last Admin: 05/01/18 23:49 Dose: 100 mls/hr Ipratropium [place] (Atrovent) 0.5 mg IH RQ4 [facility] Last Admin: 05/02/18 08:07 Dose: 0.5 mg - Labs Labs: 05/02/18 04:39 05/02/18 04:39 - Constitutional Appears: Well - Head Exam Head Exam: ATRAUMATIC, NORMAL INSPECTION, NORMOCEPHALIC - Eye Exam Eye Exam: EOMI, Normal appearance, PERRL Pupil Exam: NORMAL ACCOMODATION, PERRL - ENT Exam ENT Exam: Mucous Membranes Moist, Normal Exam - Neck Exam Neck Exam: Full ROM, Normal Inspection. absent: Lymphadenopathy - Respiratory Exam Respiratory Exam: Clear to Ausculation Bilateral, NORMAL BREATHING PATTERN - Cardiovascular Exam Cardiovascular Exam: REGULAR RHYTHM, +S1, +S2. absent: Murmur - GI/Abdominal Exam GI & Abdominal Exam: Soft, Normal Bowel Sounds. absent: Tenderness - Rectal Exam Rectal Exam: NORMAL INSPECTION - Extremities Exam Extremities Exam: Full ROM, Normal Capillary Refill, Normal Inspection. absent : Joint Swelling, Pedal Edema - Back Exam Back Exam: NORMAL INSPECTION - Neurological Exam Neurological Exam: Alert, Awake, CN II-XII Intact, Normal Gait, Oriented x3 - Psychiatric Exam Psychiatric exam: Normal Affect, Normal Mood - Skin Skin Exam: Dry, Intact, Normal Color, Warm Assessment and Plan - Assessment and Plan (Free Text) Assessment: RESPIRATORY INSUFFICIENCY IMPROVED MUCUS PLUGGING OF AIRWAYS IMPROVED Plan: CONTINUE AIRWAY TOILETRY AND BRONCHODILATOR RX
--- NOTE | 2018-05-02 11:38 | RAD ---
PROCEDURE: CHEST RADIOGRAPH, 1 VIEW HISTORY: Pt has a trach collar COMPARISON: None available. FINDINGS: LUNGS: Left basilar atelectasis. PLEURA: No pneumothorax or pleural fluid seen. CARDIOVASCULAR: Atherosclerotic aortic calcifications. Cardiomediastinal silhouette within normal limits. OSSEOUS STRUCTURES: Unchanged. VISUALIZED UPPER ABDOMEN: Normal. OTHER FINDINGS: Tracheostomy, unchanged. IMPRESSION: Basilar atelectasis.
[2018-05-02] MEDS: Albuterol 0.083% Inhal Sol (2.5 mg/3 mL) UD INH PRN (16:01)
--- NOTE | 2018-05-02 21:36 | PN ---
DATE: 05/02/2018 SUBJECTIVE: The patient is seen today, 05/02/2018. He is not in any cardiopulmonary distress. The patient was seen by both ENT and Thoracic Surgery. PHYSICAL EXAMINATION: VITAL SIGNS: Blood pressure is better controlled at 90/59, temperature 98.4, respiratory rate 18, and pulse 74. HEENT: Slightly normal-appearing mucosa of the conjunctivae. Pupils are equal and reactive to light. NECK: Trach is in place and connected to oxygen. No JVD. No carotid bruits. CHEST AND LUNGS: Bilateral symmetrical expansion. Good air exchange. No rales. No rhonchi. CARDIOVASCULAR: PMI not localized. S1 and S2. No additional sounds. ABDOMEN: Normoactive bowel sounds. No tenderness. No organomegaly. No masses. Gastric tube is in place. EXTREMITIES: No cyanosis. No clubbing. No edema. FARMWORKER ANIMAL: Alert, awake, and oriented. Moves all extremities equally. The patient has deafness. ASSESSMENT: 1. Malfunctioning and clogged tracheal tube. 2. History of cancer in larynx, status post laryngectomy. 3. Gastric tube feeding. 4., History of chronic obstructive pulmonary disease. PLAN: Continue current management and follow recommendations of both ENT as well as Pulmonary. We will transfer the patient to med surg floor. Nevin Tran MD
[2018-05-03] MEDS: Budesonide 0.25 mg/2 ml Inhal Susp UD IH SCH ×2 (08:11→20:10)
[2018-05-03] MEDS: Ipratropium 0.02% Inhal Soln (0.5 mg/2.5 ml) UD IH SCH ×5 (08:11→23:32)
--- NOTE | 2018-05-03 11:48 | CP.PCM.PN ---
Subjective - Date & Time of Evaluation Date of Evaluation: 05/03/18 Time of Evaluation: 11:48 - Subjective Subjective: no complaints no apparent distress Objective - Vital Signs/Intake and Output Vital Signs (last 24 hours): Temp Pulse Resp BP Pulse Ox 98.4 F 69 18 101/61 98 05/03/18 00:09 05/03/18 09:24 05/03/18 00:09 05/03/18 09:24 05/03/18 00:09 - Medications Medications: Current Medications Albuterol Sulfate (Albuterol 0.083% Inhal [place] (2.5 Mg/3 Ml) Ud) 2.5 mg INH RQ4 PRN PRN Reason: Shortness of Breath Last Admin: 05/02/18 16:01 Dose: 2.5 mg Amlodipine Besylate (Norvasc) 10 mg PO DAILY [facility] Last Admin: 05/03/18 09:24 Dose: Not Given Budesonide (Pulmicort Respules) 0.25 mg IH RBID [facility] Last Admin: 05/03/18 08:11 Dose: 0.25 mg Finasteride (Proscar) 5 mg PEG DAILY [facility] Last Admin: 05/03/18 09:24 Dose: 5 mg Hydrochlorothiazide (Hydrodiuril) 25 mg PO DAILY [facility] Last Admin: 05/03/18 09:26 Dose: 25 mg Ipratropium [place] (Atrovent) 0.5 mg IH RQ4 [facility] Last Admin: 05/03/18 08:11 Dose: 0.5 mg - Labs Labs: 05/02/18 04:39 05/02/18 04:39 - Constitutional Appears: No Acute Distress - Head Exam Head Exam: ATRAUMATIC, NORMAL INSPECTION, NORMOCEPHALIC - Eye Exam Eye Exam: EOMI, Normal appearance, PERRL Pupil Exam: NORMAL ACCOMODATION, PERRL - ENT Exam ENT Exam: Mucous Membranes Moist, Normal Exam - Neck Exam Neck Exam: Full ROM, Normal Inspection. absent: Lymphadenopathy Additional comments: trac site clean and dry - Respiratory Exam Respiratory Exam: Clear to Ausculation Bilateral, NORMAL BREATHING PATTERN - Cardiovascular Exam Cardiovascular Exam: REGULAR RHYTHM, +S1, +S2. absent: Murmur - GI/Abdominal Exam GI & Abdominal Exam: Soft, Normal Bowel Sounds. absent: Tenderness - Rectal Exam Rectal Exam: NORMAL INSPECTION - Extremities Exam Extremities Exam: Full ROM, Normal Capillary Refill, Normal Inspection. absent : Joint Swelling, Pedal Edema - Back Exam Back Exam: NORMAL INSPECTION - Neurological Exam Neurological Exam: Alert, Awake, CN II-XII Intact, Normal Gait, Oriented x3 - Psychiatric Exam Psychiatric exam: Normal Affect, Normal Mood - Skin Skin Exam: Dry, Intact, Normal Color, Warm Assessment and Plan - Assessment and Plan (Free Text) Assessment: respiratory insufficiency improved trach dysfunction resolved mucus plugging of airways resolved Plan: continue pulmonary toiletry
[2018-05-03] MEDS: Albuterol 0.083% Inhal Sol (2.5 mg/3 mL) UD INH PRN (15:54)
--- NOTE | 2018-05-04 03:30 | PN ---
DATE: 05/03/2018 DAILY PROGRESS NOTE SUBJECTIVE: The patient is seen today, 05/03/2018. He is not in any cardiopulmonary distress at the time of this examination, and the patient was transferred to med-surgical floor from intensive care unit. PHYSICAL EXAMINATION: VITAL SIGNS: Blood pressure 113/74, temperature 98.6, respiratory rate 18, and pulse 87. HEENT: Pupils equal and reactive to light. Normal-appearing mucosa of the conjunctivae, oropharynx, and nasal membrane mucosa. NECK: Supple. No JVD. No carotid bruits. No lymph node. No thyromegaly. CHEST AND LUNGS: Bilateral symmetrical expansion. Good air exchange. No rales. No rhonchi. CARDIOVASCULAR SYSTEM: PMI not localized. S1, S2. No additional sounds. ABDOMEN: Gastric tube is in place. No tenderness. No organomegaly. No masses. EXTREMITIES: No cyanosis, no clubbing, no edema. MEAT GRINDER: The patient has deafness and he moves all extremities equally. ASSESSMENT: 1. Malfunctioning tracheal tube. 2. History of cancer of larynx. 3. History of chronic obstructive pulmonary disease. PLAN: Follow recommendations of ENT and if the patient is stable, we will discharge in the morning. Continue current bronchodilators. Bry MD Marc
[2018-05-04] MEDS: Ipratropium 0.02% Inhal Soln (0.5 mg/2.5 ml) UD IH SCH ×3 (04:41→11:26)
[2018-05-04] MEDS: Budesonide 0.25 mg/2 ml Inhal Susp UD IH SCH (07:20)
--- NOTE | 2018-05-04 08:28 | CP.PCM.PN ---
Subjective - Date & Time of Evaluation Date of Evaluation: 05/04/18 Time of Evaluation: 08:30 - Subjective Subjective: COMFORTABLE NO CHEST PAINS/SOB TRACH SITE INTACT Objective - Vital Signs/Intake and Output Vital Signs (last 24 hours): Temp Pulse Resp BP Pulse Ox 98.2 F 83 19 125/83 95 05/04/18 00:00 05/04/18 00:00 05/04/18 00:00 05/04/18 00:00 05/04/18 00:00 - Medications Medications: Current Medications Albuterol Sulfate (Albuterol 0.083% Inhal [place] (2.5 Mg/3 Ml) Ud) 2.5 mg INH RQ4 PRN PRN Reason: Shortness of Breath Last Admin: 05/03/18 15:54 Dose: 2.5 mg Amlodipine Besylate (Norvasc) 10 mg PO DAILY [facility] Last Admin: 05/03/18 09:24 Dose: Not Given Budesonide (Pulmicort Respules) 0.25 mg IH RBID [facility] Last Admin: 05/04/18 07:20 Dose: 0.25 mg Finasteride (Proscar) 5 mg PEG DAILY [facility] Last Admin: 05/03/18 09:24 Dose: 5 mg Hydrochlorothiazide (Hydrodiuril) 25 mg PO DAILY [facility] Last Admin: 05/03/18 09:26 Dose: 25 mg Ipratropium [place] (Atrovent) 0.5 mg IH RQ4 [facility] Last Admin: 05/04/18 07:20 Dose: 0.5 mg - Labs Labs: 05/02/18 04:39 05/02/18 04:39 - Constitutional Appears: No Acute Distress - Head Exam Head Exam: ATRAUMATIC, NORMAL INSPECTION, NORMOCEPHALIC - Eye Exam Eye Exam: EOMI, Normal appearance, PERRL Pupil Exam: NORMAL ACCOMODATION, PERRL - ENT Exam ENT Exam: Mucous Membranes Moist, Normal Exam Additional comments: TRACH SITE-CLEAN AND DRY - Neck Exam Neck Exam: Full ROM, Normal Inspection. absent: Lymphadenopathy - Respiratory Exam Respiratory Exam: Clear to Ausculation Bilateral, Prolonged Expiratory Phase, NORMAL BREATHING PATTERN - Cardiovascular Exam Cardiovascular Exam: REGULAR RHYTHM, +S1, +S2. absent: Murmur - GI/Abdominal Exam GI & Abdominal Exam: Soft, Normal Bowel Sounds. absent: Tenderness - Rectal Exam Rectal Exam: NORMAL INSPECTION - Exam Exam: Circumcision, NORMAL INSPECTION External exam: NORMAL EXTERNAL EXAM Speculum exam: NORMAL SPECULUM EXAM Bimanual exam: NORMAL BIMANUAL EXAM - Extremities Exam Extremities Exam: Full ROM, Normal Capillary Refill, Normal Inspection. 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
[2018-05-04 08:33] VITALS: BP 140/88; PULSE 77; RESP 20; TEMP 98; O2SAT 99
== END 2018-05-04 14:55 | disposition home or self-care (01) | DRG 206 ==
LOC: H.ER 11:04 → H.ERHOLD 17:03 → H.TEL 18:55 → H.ICU/CCU 20:32 → OBSVTOIN 05-01 12:05 → H.MEDSURG1 05-02 21:25
PROVIDERS: ADMIT Internal Medicine; ATTEND Internal Medicine
DX: J95.03 Malfunction of tracheostomy stoma (principal); J44.9 Chronic obstructive pulmonary disease, unspecified; I16.0 Hypertensive urgency; N40.0 Benign prostatic hyperplasia without lower urinary tract symptoms; T17.990A Other foreign object in respiratory tract, part unspecified in causing asphyxiation, initial encounter; Y83.3 Surgical operation with formation of external stoma as the cause of abnormal reaction of the patient, or of later complication, without mention of misadventure at the time of the procedure; Z85.21 Personal history of malignant neoplasm of larynx; Z85.12 Personal history of malignant neoplasm of trachea

== ENCOUNTER 2019-01-07 11:51 | Emergency (ER) | payer MEDICARE, OTHER ==
[2019-01-07 12:10] VITALS: BMI 21.6
--- NOTE | 2019-01-07 13:10 | ED PDOC ---
HPI: General Adult Time Seen by Provider: 01/07/19 12:40 Chief Complaint (Nursing): GI Problem Chief Complaint (Provider): Bleeding from mouth History Per: Patient, Family History/Exam Limitations: no limitations Onset/Duration Of Symptoms: Days (1) Current Symptoms Are (Timing): Still Present Additional Complaint(s): 83yo male with history of laryngeal cancer, s/p tracheostomy, brought to ER by family for evaluation due to bleeding from mouth x 1 day. They deny any associated cough, vomiting, shortness of breath, chest pain, black/bloody stools. Patient is currently not on blood thinners. Otherwise, no headache, weakness or dizziness. No additional medical complaints. PMD: Dr. Tran Past Medical History Reviewed: Historical Data, Nursing Documentation, Vital Signs Vital Signs: Last Vital Signs Temp 97.5 F L 01/07/19 12:08 Pulse 88 01/07/19 12:08 Resp 18 01/07/19 12:08 BP 182/94 H 01/07/19 12:08 Pulse Ox 99 01/07/19 12:08 - Medical History PMH: Benign Prostatic Hyperplasia, Malignancy (laryngeal cancer) Denies: Chronic Kidney Disease - Surgical History Other surgeries: tracheostomy - Family History Family History: States: No Known Family Hx - Living Arrangements Living Arrangements: With Family - Home Medications Home Medications: Ambulatory Orders Medication Instructions Recorded Albuterol/Ipratropium [Duoneb 3 3 ml IH Q6H PRN 03/08/15 mg/0.5 mg (3 ml) UD] Finasteride [Proscar] 5 mg PEG DAILY 03/08/15 Budesonide [Pulmicort Respules] 2 ml IH Q12 04/30/18 Sodium Chloride 0.9% [Sodium 3 ml IH Q6 PRN 04/30/18 Chloride 0.9% Inh Soln] amLODIPine [Norvasc] 10 mg PO DAILY #30 tab 05/04/18 hydroCHLOROthiazide [Hydrodiuril] 25 mg PO DAILY #30 tab 05/04/18 - Allergies Allergies/Adverse Reactions: Allergies Allergy/AdvReac Type Severity Reaction Status Date / Time No Known Allergies Allergy Verified 04/30/18 11:10 Review of Systems ROS Statement: Except As Marked, All Systems Reviewed And Found Negative Constitutional: Negative for: Weakness ENT: Positive for: Other (bleeding from mouth) Cardiovascular: Negative for: Chest Pain Respiratory: Negative for: Cough, Shortness of Breath Gastrointestinal: Negative for: Vomiting, Melena, Hematochezia Physical Exam - Reviewed Nursing Documentation Reviewed: Yes Vital Signs Reviewed: Yes - Physical Exam Appears: Positive for: Non-toxic, No Acute Distress Head Exam: Positive for: ATRAUMATIC, NORMAL INSPECTION, NORMOCEPHALIC Skin: Positive for: Normal Color Eye Exam: Positive for: EOMI, PERRL ENT: Positive for: Other (no active bleeding; no lesions; ooropharynx clear) Neck: Positive for: Supple (+ tracheostomy in place; no bleeding arund tracheostomy site, no bleeding/plugging noted) Cardiovascular/Chest: Positive for: Regular Rate, Rhythm. Negative for: Tachycardia Respiratory: Positive for: Normal Breath Sounds. Negative for: Rales, Rhonchi, Wheezing Neurological/Psych: Positive for: Awake, Alert, Normal Tone, Oriented (x 3) - Laboratory Results Result Diagrams: 01/07/19 13:20 01/07/19 13:20 - ECG O2 Sat by Pulse Oximetry: 99 (RA) Pulse Ox Interpretation: Normal Medical Decision Making Medical Decision Making: Patient to get CT neck for evaluation for erosion of laryngeal cancer No suspicion for GI pathology Patient had no complaints of chest pain or shortness of breath, PE not suspected Plan: -- Labs -- CT Neck soft tissue Pt observed in ED x 5 hrs with no recurrence of bleeding, no hematemesis nor hemoptysis. Discussed with . Given stable findings on CT and blood work unremarkable compatred to 03/2018, can be dc'ed with outpt follow up Scribe Attestation: Documented by Cindy Gutierrez, acting as a scribe for Abdulaziz Childress MD. Provider Scribe Attestation: All medical record entries made by the Scribe were at my direction and personally dictated by me. I have reviewed the chart and agree that the record accurately reflects my personal performance of the history, physical exam, medical decision making, and the department course for this patient. I have also personally directed, reviewed, and agree with the discharge instructions and disposition. Disposition - Clinical Impression Clinical Impression: Laryngeal cancer - Patient ED Disposition Is Patient to be Admitted: No Counseled Patient/Family Regarding: Studies Performed, Diagnosis, Need For Followup - Disposition Referrals: Nevin Tran MD [Primary Care Provider] - Disposition: Routine/Home Disposition Time: 17:38 Condition: FAIR Instructions: Laryngeal Cancer Forms: [facility] ([place]) Print Language: URDU
[2019-01-07 13:28] LABS: BASO % 0.5 % (0.0-2.0); EOS # 0.1 K/uL (0.0-0.7); EOS % 1.7 % (0.0-4.0); HEMOGLOBIN 10.4 g/dL (12.0-18.0); LYMPH # 0.8 K/uL (1.0-4.3); LYMPH % 21.2 % (20.0-40.0); MEAN CELL VOLUME 74.5 fl (80.0-94.0); MEAN CORPUSCULAR HEMOGLOBIN 23.7 pg (27.0-31.0); MEAN CORPUSCULAR HGB CONC 31.8 g/dL (33.0-37.0); MEAN PLATELET VOLUME 9.1 fl (7.2-11.7); MONO # 0.5 K/uL (0.0-0.8); MONO % 12.2 % (0.0-10.0); NEUT # 2.4 K/uL (1.8-7.0); NEUT % 64.4 % (50.0-75.0); NRBC % 0.1 % (0.0-0.0); RBC 4.4 Mil/uL (4.40-5.90); RED CELL DISTRIBUTION WIDTH 14.7 % (11.5-14.5); WHITE BLOOD COUNT 3.7 K/uL (4.8-10.8)
[2019-01-07 13:36] LABS: INR 1.1; PROTHROMBIN TIME 12.2 Seconds (9.8-13.1)
[2019-01-07 13:47] LABS: ALBUMIN 3.7 g/dL (3.5-5.0); ALT/SGPT 17 U/L (21-72); AST/SGOT 33 U/L (17-59); BLOOD UREA NITROGEN 26 mg/dl (9-20); CALCIUM 9.1 mg/dL (8.4-10.2); GFR NON-AFRICAN AMERICAN > 60
[2019-01-07] MEDS ORDERED: Sodium Chloride 0.9% 50 ML IV ONE (14:53)
[2019-01-07] MEDS ORDERED: Iohexol 300 100 ML IJ ONE (14:53)
--- NOTE | 2019-01-07 16:36 | CT ---
Date of service: 01/07/2019 PROCEDURE: CT NECK WITH CONTRAST HISTORY: Laryngeal Ca COMPARISON: None available. TECHNIQUE: CT of the neck with intravenous contrast. Coronal and sagittal reformats generated. Intravenous contrast dose: 90 cc Omnipaque 300 Radiation dose: Total exam DLP = 321.48 mGy-cm. This CT exam was performed using one or more of the following dose reduction techniques: Automated exposure control, adjustment of the mA and/or kV according to patient size, and/or use of iterative reconstruction technique. FINDINGS: NASOPHARYNX: Unremarkable. SUPRAHYOID NECK: No mass or abnormal enhancement oropharynx, oral cavity, parapharyngeal space and retropharyngeal space. INFRAHYOID NECK: No mass or abnormal enhancement larynx, hypopharynx, and supraglottic space. Vocal cords intact. MASS: None. GLANDS: Atrophy of the glands likely related to posttreatment changes.. Normal size thyroid gland. LYMPH NODES: No pathologic lymphadenopathy. CERVICAL SPINE: No fracture or focal lesion. VASCULAR STRUCTURES: Normal intravascular enhancement. OTHER FINDINGS: There is biapical pleural parenchymal scarring. IMPRESSION: No evidence of bulky mass or pathologic lymphadenopathy. No acute findings. Posttreatment changes with tracheostomy tube in place.
[2019-01-07 17:59] VITALS: BP 132/74; PULSE 79; RESP 19; TEMP 98.6; O2SAT 98
== END 2019-01-07 18:13 | disposition home or self-care (01) ==
LOC: SUPCPDRO 11:51 → H.ER 11:51
DX: C32.9 Malignant neoplasm of larynx, unspecified (principal)
CPT/HCPCS: 70491; 80053; 85025; 85610; 99284; Q9967